=== PATIENT | male | born 1990 | race Caucasian/White ===

== ENCOUNTER 2021-06-30 11:17 | Emergency (ER) | payer SELFPAY ==
[2021-06-30] MEDS ORDERED: MORGIDOX 1X100100 MG PO (12:24)
[2021-06-30 12:34] VITALS: BP 134/90
== END 2021-06-30 12:30 | disposition home or self-care (01) ==
LOC: ED 11:17
DX: L03.116 Cellulitis of left lower limb (principal); S89.92XA Unspecified injury of left lower leg, initial encounter; F17.200 Nicotine dependence, unspecified, uncomplicated; W20.8XXA Other cause of strike by thrown, projected or falling object, initial encounter